=== PATIENT | female | born 1985 | race Caucasian/White ===

== ENCOUNTER 2020-10-11 01:27 | Emergency (ER) | payer OTHER ==
[~2020-10-11 01:27] MED LIST: ALBUTEROL1.25 MG/3 INH; CLEOCIN HCL300 MG PO; EFFEXOR XR75 MG PO; IBUPROFEN600 MG PO; LATUDA20 MG PO; LIPITOR TAB 2020 MG PO; PREDNISONE 50 M50 MG PO; TAMIFLU75 MG PO
[2020-10-11 02:56] LABS: HEMOGLOBIN 13.9 gm/dl (12.3-15.3); RED BLOOD COUNT 4.65 M/UL (4.00-5.10); WHITE BLOOD COUNT 19.1 K/UL (4.5-11.0)
[2020-10-11 03:42] LABS: BUN/CREATININE RATIO 13 (0-10)
== END 2020-10-11 04:29 | disposition home or self-care (01) ==
LOC: ER1 01:27
PROVIDERS: Physician Assistant
DX: K64.4 Residual hemorrhoidal skin tags (principal); R10.30 Lower abdominal pain, unspecified; M54.5 Low back pain; F32.9 Major depressive disorder, single episode, unspecified; F17.200 Nicotine dependence, unspecified, uncomplicated; Z79.899 Other long term (current) drug therapy; Z88.0 Allergy status to penicillin; Z20.822 Contact with and (suspected) exposure to COVID-19
CPT/HCPCS: 80053; 81001; 84703; 85025; 96374; 96375; 99285; J1885; J2405; J7030; Q9967

== ENCOUNTER → 2021-01-07 | Outpatient (CLI) | payer OTHER | LOC: LAB 12:32 | DX: N91.2 Amenorrhea, unspecified (principal); Z32.00 Encounter for pregnancy test, result unknown | CPT/HCPCS: 36415; 84702 ==

== ENCOUNTER → 2021-05-07 | Outpatient (CLI) | payer OTHER | LOC: NM 13:00 | DX: R10.11 Right upper quadrant pain (principal) | CPT/HCPCS: 78226; A9537 ==